=== PATIENT | female | born 1945 | race Caucasian/White ===

== ENCOUNTER 2018-06-15 10:05 | Outpatient (CLI) | payer OTHER ==
[2018-06-15] MEDS ORDERED: PROLIA SUBCUT STA (10:56)
[2018-06-15 15:26] VITALS: BP 142/56; TEMP 97.2
== END 2018-06-15 10:06 | disposition home or self-care (01) ==
LOC: OPMED 10:05
PROVIDERS: ATTEND Family Medicine
DX: M81.0 Age-related osteoporosis without current pathological fracture (principal); E89.40 Asymptomatic postprocedural ovarian failure
CPT/HCPCS: 96372